=== PATIENT | male | born 1980 | race Caucasian/White ===

== ENCOUNTER → 2023-03-19 10:43 | Outpatient (BNVA) | payer OTHER, SELFPAY | PROVIDERS: PCP Internal Medicine Geriatric Medicine; Visit Provider Nurse Practitioner Family | DX: N20.0 Calculus of kidney (principal); N39.43 Post-void dribbling | CPT/HCPCS: 51798; 99202 ==

== ENCOUNTER 2023-04-15 08:50 | Outpatient (REF) | payer OTHER, SELFPAY | END 2023-04-15 08:51 | disposition home or self-care (01) | LOC: HO.HMGCX 08:50 | PROVIDERS: PCP Internal Medicine Geriatric Medicine; Visit Provider Nurse Practitioner Family | DX: Z13.89 Encounter for screening for other disorder (principal) ==

== ENCOUNTER 2023-04-23 10:18 | Outpatient (REF) | payer OTHER, SELFPAY ==
--- NOTE | ~2023-04-23 | US_ITS ---
EXAMINATION: US RETROPERITONEAL COMPLETE (RENAL) CLINICAL INFORMATION: Calculus of kidney. Urinary dribbling. COMPARISON: Ultrasound kidneys 12/23/2017 and 11/12/2017. X-ray KUB 11/18/2017. TECHNIQUE: Real-time imaging of the kidneys and bladder. FINDINGS: RIGHT KIDNEY: 10.6 x 6.7 x 6.4 cm (SAG x AP x TRV). The kidney is normal in size, contour, and echogenicity. Renal cortical thickness is normal. No renal calculi or focal parenchymal lesions. There is mild hydronephrosis. LEFT KIDNEY: 11.6 x 6.4 x 5.0 cm (SAG x AP x TRV). The kidney is normal in size, contour, and echogenicity. Renal cortical thickness is normal. No calculi or focal parenchymal lesions. No hydronephrosis. BLADDER: Well distended and normal. Bilateral ureteral jets are demonstrated. Prevoid bladder volume is 563 mL. Postvoid bladder volume is 24 mL. ADDITIONAL FINDINGS: Prostate dimensions are 2.6 x 2.3 x 3.4 cm (volume 10.5 mL). US/US retroperitoneal comp IMPRESSION: There is mild right hydronephrosis. No left hydronephrosis is seen. No renal mass or calculus is seen bilaterally.
== END 2023-04-23 10:19 | disposition home or self-care (01) ==
LOC: HO.HMGCX 10:18
PROVIDERS: PCP Internal Medicine Geriatric Medicine; Visit Provider Nurse Practitioner Family
DX: N20.0 Calculus of kidney (principal); N39.43 Post-void dribbling
CPT/HCPCS: 76770

== ENCOUNTER → 2023-04-29 09:40 | Outpatient (BNVA) | payer OTHER, SELFPAY | PROVIDERS: Visit Provider Nurse Practitioner Family | DX: N20.0 Calculus of kidney (principal) | CPT/HCPCS: 99212 ==

== ENCOUNTER 2024-04-13 09:49 | Outpatient (REF) | payer OTHER, SELFPAY ==
--- NOTE | ~2024-04-13 | XR_ITS ---
EXAMINATION: XR CERVICAL SPINE CLINICAL INFORMATION: Cervical spondylitis, patient states shooting pains in head. COMPARISON: None available. TECHNIQUE: 6 views of the cervical spine. FINDINGS: Reversal of the normal cervical lordosis. Minimal anterolisthesis of C3 on C4. Mild multilevel cervical spondylosis with mild loss of disc space height at C5-C6. XR/XR cervical spine 4V IMPRESSION: Mild multilevel cervical spondylosis with mild loss of disc space height at C5-C6.
--- NOTE | ~2024-04-13 | US_ITS ---
EXAMINATION: US RETROPERITONEAL LIMITED (RENAL ONLY) CLINICAL INFORMATION: Calculus of kidney. COMPARISON: Ultrasound kidneys and bladder 04/23/2023. Renal ultrasound 12/23/2017. X-ray abdomen KUB 11/18/2017. TECHNIQUE: Real-time imaging of the kidneys. FINDINGS: RIGHT KIDNEY: 10.6 x 6.3 x 6.4 cm (SAG x AP x TRV). The kidney is normal in size, contour, and echogenicity. Renal cortical thickness is normal. No calculi or focal parenchymal lesions. No hydronephrosis. Previously seen hydronephrosis on the 04/23/2023 study is no longer present. LEFT KIDNEY: 11.4 x 5.7 x 5.0 cm (SAG x AP x TRV). The kidney is normal in size, contour, and echogenicity. Renal cortical thickness is normal. No calculi or focal parenchymal lesions. No hydronephrosis. US/US renal BI IMPRESSION: Normal kidneys.
== END 2024-04-13 09:50 | disposition home or self-care (01) ==
LOC: HO.HMGCX 09:49
PROVIDERS: PCP Internal Medicine Geriatric Medicine; Referring Provider Psychiatry & Neurology Neurology; Visit Provider Nurse Practitioner Family
DX: M46.92 Unspecified inflammatory spondylopathy, cervical region (principal); N20.0 Calculus of kidney
CPT/HCPCS: 72050; 76775

== ENCOUNTER 2024-08-10 09:22 | Outpatient (AMB) | payer OTHER, SELFPAY ==
--- NOTE | 2024-08-10 09:54 | A.OFFVIS_ITS ---
Intake Visit Reasons: follow up/US(set) Intake Note: Patient presents today for follow up vist on: kidney stone and ultrasound results Imaging Completed: 04/13/24 Urology Medications: none Blood Thinner: none Residential Door Installer Required: No Accompanied by: Self / Same As Patient Allergies levofloxacin [From Levaquin] Allergy (Severe, Unverified 08/10/24 10:19) RASH+HALLUCINATIONS meperidine [From Demerol] Allergy (Severe, Unverified 08/10/24 10:19) DIFFICULTY BREATHING,RASH+HALLUCINATIONS Medication List - Last Reconciled 08/10/24 by CHERELLE Álvarez- levetiracetam mg PO lorazepam 1 mg PO BID methadone 150 mg PO DAILY sofosbuvir-velpatasvir 400-100 mg 1 tab PO DAILY HPI Comments Details: Kemar is a pleasant 43-year-old male patient of Dr. Bell. He presents to the office today for a follow up. He has a past medical history of substance abuse and hep C. He presents to the office today for follow-up of his history of nephrolithiasis. Recent renal imaging results reviewed with the patient today. Bilateral kidneys with no hydronephrosis, lesions, and or calculi noted. We did however discuss microscopic hematuria noted on urinalysis during last office visit as well as today. We discussed correlation of microscopic hematuria in the setting of nicotine dependence. We discussed further workup to include CT urogram, urine cytology, and in office cystoscopy. Risks and benefits of these interventions were discussed. Patient would like to continue with surveillance monitoring at this time. He otherwise denies any bothersome urinary issues or concerns. He denies urinary urgency, urinary frequency, incontinence, nocturia, hematuria, dysuria, foul-smelling urine, changes to urinary stream, fever, and or chills. He does however continue to report left upper quadrant pain near his rib and continues to follow-up with his PCP. He has a history of multiple ESWL with Dr. Shin in the past. I discussed reasons for blood in the urine may include but are not limited to kidney stones, cancer in the urinary tract, BPH, kidney stone disease or inflammatory conditions of the urinary tract. I have discussed workup to include cystoscopy evaluation. He otherwise offers no other issues or concerns at this time. Review of Systems Const Reports as per HPI Eyes Reports no additional complaints ENT Reports no additional complaints Card Reports no additional complaints Resp Reports no additional complaints GI Reports as per HPI Reports as per HPI Musc Reports no additional complaints Neuro Reports no additional complaints Psych Reports no additional complaints Endo Reports no additional complaints Physical Exam Const General: cooperative, healthy appearing, comfortable, no acute distress, well developed, alert and awake Orientation/consciousness: patient oriented x3 Limitations: no limitations HEENT Head: Yes normal to inspection, Yes normocephalic and Yes atraumatic Ears: hearing grossly normal bilaterally Eyes General: appearance normal, both eyes and all related structures Neck Neck: Yes normal visual inspection and Yes trachea midline Chest Chest palpation & inspection: normal inspection of the chest Resp Effort & Inspection: normal respiratory effort and able to speak in complete sentences Cardio Rate: regular rate GI Inspection: Yes normal to inspection General: Yes no CVA tenderness Back/Spine/Pelvis Back: no CVA tenderness Skin General skin exam: no rashes or lesions noted Neuro General: patient oriented x3 Extrem General: Yes normal to inspection Psych Appearance: grossly normal and well kempt Mental Status: mental status grossly normal Speech and movement: Normal speech and movement present and Clear speech present Affect: normal affect Attitude: cooperative Thought process: Normal thought process present Thought content: Normal thought content present Insight: Fair insight present (Psych) Judgement: Fair judgement present (Psych) Results AMB Urinalysis, Automated UA Leukoctes 0 Patricio/uL Last Edit by Randall Garcia on 08/10/24 10:10 UA Nitrite Last Edit by [employer] Garcia on 08/10/24 10:10 UA Urobilinogen 0.2 mg/dL Last Edit by Randall Garcia on 08/10/24 10:10 UA Protein 15 mg/dL Last Edit by Randall Garcia on 08/10/24 10:10 UA pH 6.0 Last Edit by Randall Garcia on 08/10/24 10:10 UA Blood 10 Vimal/uL Last Edit by Randall Garcia on 08/10/24 10:10 UA Specific Robinson 1.020 Last Edit by Randall Garcia on 08/10/24 10:10 UA Ketone Last Edit by Randall Garcia on 08/10/24 10:10 UA Bilirubin 0 mg/dL Last Edit by Randall Garcia on 08/10/24 10:10 UA Glucose 0 mg/dL Last Edit by Randall Garcia on 08/10/24 10:10 Results Reviewed Results Reviewed: Laboratory Last Values Urine pH (Auto) 6.0 08/10/24 10:09 Specific Robinson (Auto) 1.020 08/10/24 10:09 Urine Protein (Auto) 15 mg/dL 08/10/24 10:09 Glucose (UA)(Auto) 0 mg/dL 08/10/24 10:09 Urine Blood (Auto) 10 Vimal/uL 08/10/24 10:09 Urine Bilirubin (Auto) 0 mg/dL 08/10/24 10:09 Urine Urobilinogen (Auto) 0.2 mg/dL 08/10/24 10:09 Leukocyte Esterase (Auto) 0 Patricio/uL 08/10/24 10:09 Date of Service: 04/13/24 EXAMINATION: US RETROPERITONEAL LIMITED (RENAL ONLY) FINDINGS: RIGHT KIDNEY: 10.6 x 6.3 x 6.4 cm (SAG x AP x TRV). The kidney is normal in size, contour, and echogenicity. Renal cortical thickness is normal. No calculi or focal parenchymal lesions. No hydronephrosis. Previously seen hydronephrosis on the 04/23/2023 study is no longer present. LEFT KIDNEY: 11.4 x 5.7 x 5.0 cm (SAG x AP x TRV). The kidney is normal in size, contour, and echogenicity. Renal cortical thickness is normal. No calculi or focal parenchymal lesions. No hydronephrosis. IMPRESSION: Normal kidneys. Assessment & Plan Assessment & Plan (1) Urinary dribbling: Code(s): N39.43 - Post-void dribbling Category: Medical (2) Recurrent nephrolithiasis: Code(s): N20.0 - Calculus of kidney Category: Medical (3) Microscopic hematuria: Code(s): R31.29 - Other microscopic hematuria Category: Medical (4) Nicotine dependence: Code(s): F17.200 - Nicotine dependence, unspecified, uncomplicated Category: Medical Plan In office urinalysis results reviewed with the patient today; as noted above; will send for urine cytology. We discussed at length potential causes of microscopic hematuria. We discussed further workup versus surveillance monitoring; risks and benefits of these interventions were discussed. He currently denies any bothersome urinary issues or concerns. Recent renal imaging results reviewed with the patient today; as noted above. He reports be happy with current voiding parameters. Continue drinking plenty of water daily. Continue adding 1 oz of lemon juice to water daily. Follow-up in 6 months; or sooner with any issues, concerns, and or questions. Orders: Orders AMB Urinalysis Automated Today Z13.9 - Encounter for screening, unspecified US renal BI 6 Months N20.0 - Calculus of kidney Patient Instructions: The patient had an opportunity to ask questions regarding the treatment plan. A ll questions were answered. Physical exam, labs, and imaging were discussed and reviewed in detail. As well as risks, benefits, and discussion of treatment choices. No major barriers to understanding were identified. The patient expressed understanding and agreement with the above treatment plan. The patient was made aware they should contact our office by phone for worsening of their current condition, the appearance of new symptoms, or with any questions or concerns. Compliance is encouraged with any medications and follow up testing that is ordered. It is a privilege to be allowed the opportunity to participate in? your urological care.? Again, if you have any questions or concerns If you have any questions or concerns please do not hesitate to contact me. The office is [phone]. This note is constructed using voice recognition software. While every effort has been made to ensure accuracy pens and pencils repairer errors may have been included. Yours sincerely, KURTIS Álvarez Coding Level of Care Code Est Pt Level 3 (72368) Diagnoses Urinary dribbling N39.43 Recurrent nephrolithiasis N20.0 Microscopic hematuria R31.29 Nicotine dependence F17.200
== END 2024-08-10 10:19 | disposition home or self-care (01) ==
PROVIDERS: PCP Internal Medicine Geriatric Medicine; Visit Provider Nurse Practitioner Family
DX: N39.43 Post-void dribbling (principal); N20.0 Calculus of kidney; R31.29 Other microscopic hematuria; F17.200 Nicotine dependence, unspecified, uncomplicated; Z13.9 Encounter for screening, unspecified
CPT/HCPCS: 99213

== ENCOUNTER 2024-08-10 09:22 | Outpatient (REF) | payer OTHER, SELFPAY ==
[2024-08-10 16:44] LABS: Urine Cytology See Pathology rpt
== END 2024-08-10 09:23 | disposition home or self-care (01) ==
LOC: HO.LNP 09:22
PROVIDERS: PCP Internal Medicine Geriatric Medicine; Visit Provider Nurse Practitioner Family
DX: R31.29 Other microscopic hematuria (principal)
CPT/HCPCS: 81003; 88112; 99212

== ENCOUNTER 2025-02-01 09:52 | Outpatient (REF) | payer OTHER, SELFPAY ==
--- NOTE | ~2025-02-01 | US_ITS ---
CLINICAL HISTORY: N20.0 - Calculus of kidney US Renal Comparison: US/GA/SR - US RENAL BI - 04/13/24 09:54 EDT Findings: Right kidney normal size and echotexture, 10.8 cm length. Left kidney normal size and echotexture, 11 cm length. No hydronephrosis of either kidney. Normal color Doppler IMPRESSION: 1. Normal kidneys. This document has been electronically signed by: Ron Henson MD on 02/02/2025 07:06:42
== END 2025-02-01 09:53 | disposition home or self-care (01) ==
LOC: HO.US 09:52
PROVIDERS: PCP Internal Medicine Geriatric Medicine; Visit Provider Nurse Practitioner Family
DX: N20.0 Calculus of kidney (principal)
CPT/HCPCS: 76775

== ENCOUNTER → 2025-02-01 09:54 | Outpatient (BNV) | payer OTHER, SELFPAY | PROVIDERS: PCP Internal Medicine Geriatric Medicine; Visit Provider Radiology Diagnostic Radiology | DX: N20.0 Calculus of kidney (principal) | CPT/HCPCS: 76775 ==

== ENCOUNTER 2025-04-15 10:30 | Outpatient (REF) | payer OTHER, SELFPAY ==
--- NOTE | ~2025-04-15 | MR_ITS ---
EXAMINATION: MR BRAIN WITHOUT CONTRAST CLINICAL INFORMATION: Seizure disorder. COMPARISON: None available. TECHNIQUE: MRI of the brain was obtained using seizure protocol sequences without contrast. Examination performed on a 1.5 Carolann Siemens high-field unit. FINDINGS: There is no diffusion restriction. There is no intracranial hemorrhage, acute infarction, mass effect, or edema. Ventricles, sulci, and cisterns are normal in size and configuration for patient age. No shift of midline. No abnormal hemosiderin deposition is identified. There are no significant white matter signal abnormalities identified. Hippocampal formations are normal in volume and signal, and symmetric bilaterally. The temporal horns are symmetric. There is no evidence of heterotopic knowles matter, or gross cortical dysplasia. Midline structures appear normally formed. The pituitary gland appears normal. Posterior fossa structures appear normal. Cerebellar tonsils are appropriately located. Major flow voids are preserved within the skull base. The globes and orbital contents demonstrate no abnormalities. Paranasal sinuses are clear bilaterally. Nasal septum is midline without spur. There is trace right mastoid fluid. The mastoids and tympanic cavities are otherwise normally aerated. Extracranial soft tissues demonstrate no abnormalities. No suspicious bone marrow changes are evident. Atlantoaxial joint is normal. MR/MR head/brain wo con IMPRESSION: 1. No evidence of intracranial hemorrhage, acute infarction, mass effect, or edema. 2. No significant white matter abnormalities. 3. The hippocampi are normal in signal and volume bilaterally. No evidence of cortical dysplasia or gross knowles matter heterotopia. Electronically signed by: Faisal Gamez MD 04/17/2025 09:08 AM EDT
== END 2025-04-15 10:31 | disposition home or self-care (01) ==
LOC: HO.MRI 10:30
PROVIDERS: Visit Provider Registered Nurse
DX: G40.909 Epilepsy, unspecified, not intractable, without status epilepticus (principal)
CPT/HCPCS: 70551

== ENCOUNTER → 2025-04-15 10:41 | Outpatient (BNV) | payer OTHER, SELFPAY | PROVIDERS: Visit Provider Radiology Diagnostic Radiology | DX: H74.8X1 Other specified disorders of right middle ear and mastoid (principal) | CPT/HCPCS: 70551 ==

== ENCOUNTER 2025-04-26 07:28 | Outpatient (AMB) | payer OTHER, SELFPAY ==
--- NOTE | 2025-04-26 07:37 | A.OFFVIS_ITS ---
Intake Visit Reasons: 6m/US(set) Intake Note: Patient presents today for follow up vist on: kidney stone and ultrasound results Imaging Completed: 02/01/25 Urology Medications: none Blood Thinner: none Plunger Shovel Operator Required: No Accompanied by: Self / Same As Patient Allergies levofloxacin (From Levaquin) Allergy (Severe, Unverified 04/26/25 08:08) RASH+HALLUCINATIONS meperidine (From Demerol) Allergy (Severe, Unverified 04/26/25 08:08) DIFFICULTY BREATHING,RASH+HALLUCINATIONS Medication List - Last Reconciled 04/26/25 by CHERELLE Álvarez- levetiracetam mg PO lorazepam 1 mg PO BID methadone 150 mg PO DAILY HPI Comments Details: Kemar is a pleasant 44-year-old male patient of Dr. Bell. He presents to the office today for a follow up. He has a past medical history of substance abuse and hep C. He presents to the office today for follow-up of his history of nephrolithiasis. Recent renal imaging results reviewed with the patient today 02/24 Bilateral kidneys with no hydronephrosis, lesions, and or calculi noted. We did however discuss microscopic hematuria noted on urinalysis during last office visit as well as today. We discussed correlation of microscopic hematuria in the setting of nicotine dependence. We discussed further workup to include CT urogram, urine cytology, and in office cystoscopy. Risks and benefits of these interventions were discussed. Patient would like to continue with surveillance monitoring at this time. He otherwise denies any bothersome urinary issues or concerns. He denies urinary urgency, urinary frequency, incontinence, nocturia, hematuria, dysuria, foul-smelling urine, changes to urinary stream, fever, and or chills. He does however continue to report left upper quadrant pain near his rib and continues to follow-up with his PCP. He has a history of multiple ESWL with Dr. Shin in the past. I discussed reasons for blood in the urine may include but are not limited to kidney stones, cancer in the urinary tract, BPH, kidney stone disease or inflammatory conditions of the urinary tract. I have discussed workup to include cystoscopy evaluation. Office urinalysis results reviewed with the patient today. We did discussed the importance of adequate hydration relation to nephrolithiasis as well as overall health and well-being. He otherwise offers no other issues or concerns at this time. Urine cytology 08/25: Negative for high-grade urothelial carcinoma Review of Systems Const Reports as per HPI Eyes Reports no additional complaints ENT Reports no additional complaints Card Reports no additional complaints Resp Reports no additional complaints GI Reports as per HPI Reports as per HPI Musc Reports no additional complaints Neuro Reports no additional complaints Psych Reports no additional complaints Endo Reports no additional complaints Physical Exam Const General: cooperative, healthy appearing, comfortable, no acute distress, well developed, alert and awake Orientation/consciousness: patient oriented x3 Limitations: no limitations HEENT Head: Yes normal to inspection, Yes normocephalic and Yes atraumatic Ears: hearing grossly normal bilaterally Eyes General: appearance normal, both eyes and all related structures Neck Neck: Yes normal visual inspection and Yes trachea midline Chest Chest palpation & inspection: normal inspection of the chest Resp Effort & Inspection: normal respiratory effort and able to speak in complete sentences Cardio Rate: regular rate GI Inspection: Yes normal to inspection General: Yes no CVA tenderness Back/Spine/Pelvis Back: no CVA tenderness Skin General skin exam: no rashes or lesions noted Neuro General: patient oriented x3 Extrem General: Yes normal to inspection Psych Appearance: grossly normal and well kempt Mental Status: mental status grossly normal Speech and movement: Normal speech and movement present and Clear speech present Affect: normal affect Attitude: cooperative Thought process: Normal thought process present Thought content: Normal thought content present Insight: Fair insight present (Psych) Judgement: Fair judgement present (Psych) Results AMB Urinalysis, Automated UA Leukoctes 0 Patricio/uL Last Edit by DORA Sanchez on 04/26/25 08:03 UA Nitrite Last Edit by DORA Sanchez on 04/26/25 08:03 UA Urobilinogen 0.2 mg/dL Last Edit by DORA Sanchez on 04/26/25 08:0 3 UA Protein 0 mg/dL Last Edit by DORA Sanchez on 04/26/25 08:03 UA pH 6.0 Last Edit by Randall Diannefabio, [facility] on 04/26/25 08:03 UA Blood 25 Vimal/uL Last Edit by Randall Garcia, [facility] on 04/26/25 08:03 UA Specific Hostetter 1.025 Last Edit by Randall Garcia, [facility] on 04/26/25 08: 03 UA Ketone Last Edit by Randall Diannefabio, [facility] on 04/26/25 08:03 UA Bilirubin 0 mg/dL Last Edit by Randall Garcia, [facility] on 04/26/25 08:03 UA Glucose 0 mg/dL Last Edit by Randall Diannefabio, [facility] on 04/26/25 08:03 Results Reviewed Results Reviewed: Laboratory Last Values Urine pH (Auto) 6.0 04/26/25 07:53 Specific Hostetter (Auto) 1.025 04/26/25 07:53 Urine Protein (Auto) 0 mg/dL 04/26/25 07:53 Glucose (UA)(Auto) 0 mg/dL 04/26/25 07:53 Urine Blood (Auto) 25 Vimal/uL 04/26/25 07:53 Urine Bilirubin (Auto) 0 mg/dL 04/26/25 07:53 Urine Urobilinogen (Auto) 0.2 mg/dL 04/26/25 07:53 Leukocyte Esterase (Auto) 0 Patricio/uL 04/26/25 07:53 Date of Service: 02/01/25 Procedure(s): US renal BI Findings: Right kidney normal size and echotexture, 10.8 cm length. Left kidney normal size and echotexture, 11 cm length. No hydronephrosis of either kidney. Normal color Doppler IMPRESSION: 1. Normal kidneys. Assessment & Plan Assessment & Plan (1) Urinary dribbling: Code(s): N39.43 - Post-void dribbling Category: Medical (2) Recurrent nephrolithiasis: Code(s): N20.0 - Calculus of kidney Category: Medical (3) Microscopic hematuria: Code(s): R31.29 - Other microscopic hematuria Category: Medical (4) Nicotine dependence: Code(s): F17.200 - Nicotine dependence, unspecified, uncomplicated Category: Medical Plan In office urinalysis results reviewed with the patient today; as noted above; will send for urine cytology. We discussed at length potential causes of microscopic hematuria. We discussed further workup versus surveillance monitoring; risks and benefits of these interventions were discussed. He currently denies any bothersome urinary issues or concerns. We discussed the importance of limiting/quitting nicotine dependence for overall health and well-being Recent renal imaging results reviewed with the patient today; as noted above. He reports be happy with current voiding parameters. Continue drinking plenty of water daily. Continue adding 1 oz of lemon juice to water daily. Will obtain renal ultrasound in 1 year Follow-up in 1 year with imaging; or sooner with any issues, concerns, and or questions. Orders: Orders AMB Urinalysis Automated Today Z13.9 - Encounter for screening, unspecified Urine Cytology Today R31.29 - Other microscopic hematuria US renal BI 1 Year N20.0 - Calculus of kidney Patient Instructions: The patient had an opportunity to ask questions regarding the treatment plan. All questions were answered. Physical exam, labs, and imaging were discussed and reviewed in detail. As well as risks, benefits, and discussion of treatment choices. No major barriers to understanding were identified. The patient expressed understanding and agreement with the above treatment plan. The patient was made aware they should contact our office by phone for worsening of their current condition, the appearance of new symptoms, or with any questions or concerns. Compliance is encouraged with any medications and follow up testing that is ordered. It is a privilege to be allowed the opportunity to participate in? your urological care.? Again, if you have any questions or concerns If you have any questions or concerns please do not hesitate to contact me. The office is [phone]. This note is constructed using voice recognition software. While every effort has been made to ensure accuracy [email or web address] android developer errors may have been included. Yours sincerely, KURTIS Álvarez Coding Level of Care Code Est Pt Level 3 (96034) Diagnoses Urinary dribbling N39.43 Recurrent nephrolithiasis N20.0 Microscopic hematuria R31.29 Nicotine dependence F17.200
== END 2025-04-26 08:13 | disposition home or self-care (01) ==
LOC: HO.HUSH 07:29
PROVIDERS: PCP Internal Medicine Geriatric Medicine; Visit Provider Nurse Practitioner Family
DX: N39.43 Post-void dribbling (principal); N20.0 Calculus of kidney; R31.29 Other microscopic hematuria; F17.200 Nicotine dependence, unspecified, uncomplicated; Z13.9 Encounter for screening, unspecified
CPT/HCPCS: 99213

== ENCOUNTER 2025-04-26 07:28 | Outpatient (REF) | payer OTHER, SELFPAY ==
[2025-04-26 16:33] LABS: Urine Cytology See Pathology rpt
== END 2025-04-26 07:29 | disposition home or self-care (01) ==
LOC: HO.LNP 07:28
PROVIDERS: PCP Internal Medicine Geriatric Medicine; Visit Provider Nurse Practitioner Family
DX: R31.29 Other microscopic hematuria (principal); N39.43 Post-void dribbling; N20.0 Calculus of kidney; F17.200 Nicotine dependence, unspecified, uncomplicated; Z71.6 Tobacco abuse counseling
CPT/HCPCS: 81003; 88112; 99212

== ENCOUNTER 2025-09-08 10:12 | Outpatient (AMB) | payer OTHER, SELFPAY ==
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
== END 2025-09-08 10:59 | disposition home or self-care (01) ==
LOC: HO.HSM 10:12
PROVIDERS: PCP Internal Medicine Geriatric Medicine; Visit Provider Registered Nurse
DX: G40.909 Epilepsy, unspecified, not intractable, without status epilepticus (principal); M54.81 Occipital neuralgia; G47.00 Insomnia, unspecified
CPT/HCPCS: 99214

== ENCOUNTER → 2025-09-08 10:12 | Outpatient (BNVA) | payer OTHER, SELFPAY | PROVIDERS: PCP Internal Medicine Geriatric Medicine; Visit Provider Registered Nurse | DX: G40.909 Epilepsy, unspecified, not intractable, without status epilepticus (principal); M54.81 Occipital neuralgia; G47.00 Insomnia, unspecified | CPT/HCPCS: 99212 ==